=== PATIENT | female | born 1990 | race Two or more races ===

== ENCOUNTER 2018-07-25 11:22 | Emergency (ER) | payer OTHER ==
[~2018-07-25] VITALS: Ht 162.6 cm; Wt 74.8 kg
[2018-07-25 11:57] VITALS: Ht 162.6 cm; Wt 74.8 kg
[2018-07-25 12:46] VITALS: BP 126/92
== END 2018-07-25 12:46 | disposition home or self-care (01) ==
LOC: ED 11:22
DX: S00.83XA Contusion of other part of head, initial encounter (principal); S20.211A Contusion of right front wall of thorax, initial encounter; S00.31XA Abrasion of nose, initial encounter; S00.511A Abrasion of lip, initial encounter; S00.81XA Abrasion of other part of head, initial encounter; E11.9 Type 2 diabetes mellitus without complications; Z98.890 Other specified postprocedural states; W01.198A Fall on same level from slipping, tripping and stumbling with subsequent striking against other object, initial encounter; Y93.89 Activity, other specified; Y92.89 Other specified places as the place of occurrence of the external cause; Y99.8 Other external cause status
CPT/HCPCS: 90715